=== PATIENT | male | born 1995 | race Hispanic/Latino ===

== ENCOUNTER 2025-01-30 22:58 | Emergency (ER) | payer OTHER ==
[~2025-01-30] VITALS: Ht 175.3 cm; Wt 99.8 kg
[2025-01-30 23:02] VITALS: PULSE 120; RESP 21; TEMP 99.9
[2025-01-31] MEDS: ONDANSETRON HCL INJ 2MG/ML 2ML 2 MG/ML VIAL IV STA (00:30)
[2025-01-31] MEDS: SODIUM CHLORIDE 0.9% 1000ML 1,000 ML IV SCH (01:21)
[2025-01-31] MEDS ORDERED: IOPAMIDOL 370 MG/ML 100 ML INFUS..BTL INJ ONE (01:23)
[2025-01-31] MEDS ORDERED: ONDANSETRON ODT4 MG PO (02:56)
[2025-01-31 02:59] VITALS: BP 111/65; PULSE 107; RESP 16; TEMP 99.9; O2SAT 98
== END 2025-01-31 03:12 | disposition home or self-care (01) ==
LOC: FSED 23:10
DX: R10.13 Epigastric pain (principal); A08.4 Viral intestinal infection, unspecified; R11.2 Nausea with vomiting, unspecified; R16.1 Splenomegaly, not elsewhere classified
CPT/HCPCS: 74177; 80053; 85025; 99284; J2405; J7030; Q9967